=== PATIENT | male | born 1940 | race Caucasian/White ===

== ENCOUNTER → 2017-10-01 12:44 | Outpatient (CLI) | payer MEDICARE, BC ==
[2015-08-16 13:02] VITALS: BMI 25.1
[~2017-10-01 12:44] MED LIST: ATIVAN2 MG PO; BAYER CHEWABLE81 MG PO; BIOTIN PO; CARDIZEM120 MG PO; FLAXSEED OIL1000 MG PO; HYDROXYUREA500 MG GT; LAMISIL250 MG PO; PRAVACHOL20 MG PO; PRINIVIL20 MG PO
== END | disposition home or self-care (01) ==
LOC: D.US 12:44
DX: L97.909 Non-pressure chronic ulcer of unspecified part of unspecified lower leg with unspecified severity (principal); M79.605 Pain in left leg; M79.604 Pain in right leg